=== PATIENT | female | born 1995 | race Caucasian/White ===

== ENCOUNTER 2024-05-19 02:09 | Inpatient (IN) | payer BC ==
[2024-05-19 02:50] VITALS: BMI 24.3
[2024-05-19] MEDS ORDERED: fentaNYL 50 mcg/mL 1 mL Vial SLOW IVP PRN (03:39)
[2024-05-19] MEDS ORDERED: Tranexamic Acid 1,000 MG/10 ML VIAL IVP PRN (03:40)
[2024-05-19 03:41] LABS: Hematocrit 36.7 % (34.9-44.5); Hemoglobin 12.3 g/dL (12.0-15.5); Mean Corpuscular HGB CONC 33.5 g/dL (32.0-36.0); Mean Corpuscular Hemoglobin 30.4 pg (27.0-33.0); Mean Corpuscular Volume 90.6 fL (81.6-98.3); Mean Platelet Volume 10.5 fL (7.4-10.4); Platelet Count 227 10x3/uL (150-450); RBC Distribution Width 12.3 % (11.5-14.5); Red Blood Cell (RBC) Count 4.05 10x6/uL (3.90-5.03); White Blood Cell (WBC) Count 14.2 10x3/uL (3.5-10.5)
[2024-05-19] MEDS ORDERED: Carboprost 250 MCG/ML AMP IM PRN (03:45)
[2024-05-19] MEDS ORDERED: Ibuprofen 800 MG TAB PO PRN (03:45)
[2024-05-19] MEDS ORDERED: hydrALAZINE 20 MG/ML VIAL SLOW IVP PRN ×2 (03:45→14:30)
[2024-05-19] MEDS ORDERED: Misoprostol 200 MCG TAB RC PRN (03:45)
[2024-05-19] MEDS ORDERED: Acetaminophen 500 MG TAB PO PRN (03:45)
[2024-05-19] MEDS ORDERED: Lidocaine 1% (PF) 30 ML VIAL SC PRN (03:45)
[2024-05-19] MEDS ORDERED: Methylergonovine 0.2 MG/ML VIAL IM PRN (03:45)
[2024-05-19] MEDS ORDERED: Oxytocin 30 units/NS 500 ML 500 ML IV SCH (03:45)
[2024-05-19] MEDS ORDERED: Promethazine HCl 25 MG/ML VIAL IM PRN ×2 (03:45→05:13)
[2024-05-19] MEDS ORDERED: Ondansetron PF 4 MG/2 ML Vial IVP PRN ×3 (03:45→14:30)
[2024-05-19] MEDS ORDERED: Oxytocin 30 units/NS 500 ML 500 ML IVPB SCH (03:45)
[2024-05-19 03:52] LABS: HBsAg Index 0.31 S/CO (0-0.99); Hep B Surf Ag - L&D Non-Reactive S/CO (NonReactive)
[2024-05-19 03:54] LABS: Syphilis Antibody Nonreactive (Nonreactive); Syphilis Antibody Index 0.03 S/CO (<1.00 Non-Reactive)
[2024-05-19] MEDS: fentaNYL/Ropivacaine Epidural 100 ML ONE (04:31)
[2024-05-19] MEDS ORDERED: Lactated Ringer's 1,000 ML IV SCH (04:45)
[2024-05-19] MEDS ORDERED: Moisturizing Cream (Eucerin) 113 GM JAR TOP PRN (05:13)
[2024-05-19] MEDS ORDERED: Lactated Ringer's 500 ML IV PRN (05:13)
[2024-05-19] MEDS ORDERED: Acetaminophen 325 MG TAB PO PRN (05:13)
[2024-05-19] MEDS ORDERED: ePHEDrine Sulfate 50 MG/10 ML VIAL SLOW IVP PRN (05:13)
[2024-05-19] MEDS ORDERED: diphenhydrAMINE 50 MG/ML VIAL IVP PRN (05:13)
[2024-05-19] MEDS ORDERED: Naloxone HCl 0.4 mg/ml Vial IVP PRN ×2 (05:13)
[2024-05-19] MEDS ORDERED: Communication Order-Pharmacy FS SCH (05:15)
[2024-05-19] MEDS ORDERED: fentaNYL 2 mcg/Ropivacaine 0.2% Epidural 100 ML CADD EPIDURAL SCH (05:15)
[2024-05-19] MEDS ORDERED: diphenhydrAMINE 25 MG CAP PO PRN (14:30)
[2024-05-19] MEDS ORDERED: Lanolin Ointment 7 GM TUBE TOP PRN (14:30)
[2024-05-19] MEDS ORDERED: HYDROcodone/Acetaminophen 5/325 mg Tablet PO PRN ×2 (14:30)
[2024-05-19] MEDS ORDERED: Bisacodyl 10 MG SUPP PR PRN (14:30)
[2024-05-19] MEDS ORDERED: Milk Of Magnesia 30 ML UDCUP PO PRN (14:30)
[2024-05-19] MEDS ORDERED: Preparation H Ointment 28 GM TUBE PR PRN (14:30)
[2024-05-19] MEDS: Benzocaine-Menthol 82.5 ML CAN TOP PRN (21:43)
[2024-05-19] MEDS: Docusate 100 MG CAP PO SCH (21:44)
[2024-05-19] MEDS: Ibuprofen 800 MG TAB PO SCH (21:44)
[2024-05-20] MEDS: Ferrous Sulfate 325 MG TAB PO SCH (03:03)
[2024-05-20] MEDS: Ibuprofen 800 MG TAB PO SCH (03:03)
[2024-05-20] MEDS: Lactated Ringer's 1,000 ML IV SCH (03:03)
[2024-05-20] MEDS: Prenatal Vitamin 1 TAB PO SCH (08:08)
[2024-05-21] MEDS: Boostrix 0.5 ML (Tdap) VIAL (>/=7 yrs of age) IM ONE (07:17)
[2024-05-21 07:48] VITALS: BP 116/66; TEMP 98.5
== END 2024-05-21 08:44 | disposition home or self-care (01) | DRG 807 ==
LOC: CSHLD/OP 02:09 → CSHLD 02:33 → CSHPP 13:40
PROVIDERS: ADMIT Student in an Organized Health Care Education/Training Program; ATTEND Student in an Organized Health Care Education/Training Program
PROC: 0KQM0ZZ Repair Perineum Muscle, Open Approach (ICD-10-PCS; principal; 2024-05-19)
PROC: 10E0XZZ Delivery of Products of Conception, External Approach (ICD-10-PCS; 2024-05-19)
DX: O48.0 Post-term pregnancy (principal); Z37.0 Single live birth; Z3A.40 40 weeks gestation of pregnancy; Z88.1 Allergy status to other antibiotic agents; O70.1 Second degree perineal laceration during delivery; O69.81X0 Labor and delivery complicated by cord around neck, without compression, not applicable or unspecified
CPT/HCPCS: 36415; 51702; 85027; 86780; 86850; 86900; 86901; 87340; 99285